=== PATIENT | male | born 1965 | race African-American/Black ===

== ENCOUNTER 2020-10-31 18:19 | Observation (INO) ==
[2020-10-31] MEDS ORDERED: NITROGLYCERIN 2% OINT 1 INCH/GM PACK TOP STA (18:49)
[2020-10-31] MEDS ORDERED: MORPHINE 4 MG/1 ML VIAL IV STA (18:49)
[2020-10-31] MEDS ORDERED: ONDANSETRON 4 MG/2 ML VIAL IV STA (18:49)
[2020-10-31] MEDS ORDERED: ASPIRIN 325 MG TABLET PO STA (18:49)
[2020-10-31] MEDS ORDERED: FUROSEMIDE 100 MG/10 ML VIAL IV STA (18:49)
[2020-10-31 19:00] LABS: Basophils % 0.5 % (0.0-0.8); Eosinophils # 0.1 10*3/uL (0.0-0.87); Eosinophils % 2.3 % (0.00-10.9); Hematocrit 39.5 VOL% (42.0-52.0); Hemoglobin 12.3 GM/DL (14.0-18.0); Immature Granulocytes % 0.5 %; Immature Granulocytes Absolute 0.03 #; Lymphocytes % 33.3 % (21.2-54.2); Mean Corpuscular HGB Conc 31.1 GM/DL (32-36); Mean Platelet Volume 10.6 FL (9.6-12.0); Neutrophils % 53.4 % (38.7-73.9); Platelet Count 235 T/CUMM (130-400); Red Blood Count 4.54 MC/CUMM (3.8-5.5); Red Cell Distribution Width 13.6 % (9.3-17.3)
[2020-10-31 19:23] LABS: PT Patient Result 10.9 SECS (10.5-12.0)
[2020-10-31 19:24] LABS: Alanine Aminotransferase 51 U/L (16-61); Albumin 3.6 G/DL (3.4-5.0); Alkaline Phosphatase 128 U/L (45-117); Aspartate Amino Transferase 28 U/L (0-37); Bilirubin,Total < 0.39 MG/DL (0.2-1.0); Blood Urea Nitrogen 10 MG/DL (7-18); Carbon Dioxide 30 MMOL/L (21-32); Estimated Glom Filtration Rate 141 ML/MIN; Glucose 241 MG/DL (74-106); Osmolality,Calculated 283.5 MOS/KG (273-304); Potassium 4.2 MMOL/L (3.5-5.1); Sodium 139 MMOL/L (136-145); Total Protein 7.6 G/DL (6.4-8.2)
[2020-10-31] MEDS ORDERED: ENOXAPARIN 120 MG/0.8 ML SYRINGE SUBCUT ONE (19:41)
[2020-10-31] MEDS ORDERED: ENOXAPARIN 120 MG/0.8 ML SYRINGE SUBCUT STA (19:41)
[2020-10-31] MEDS ORDERED: LOTION (KERI) 236 ML BOTTLE TOP PRN (20:44)
[2020-10-31] MEDS ORDERED: DEXTROSE 50% 25 GM/50 ML VIAL IV PRN (20:46)
[2020-10-31] MEDS ORDERED: ONDANSETRON 4 MG/2 ML VIAL IV PRN (20:46)
[2020-10-31] MEDS ORDERED: DOCUSATE SODIUM 100 MG CAPSULE PO PRN (20:46)
[2020-10-31] MEDS ORDERED: MORPHINE 4 MG/1 ML VIAL IV PRN (20:46)
[2020-10-31] MEDS ORDERED: hydrALAZINE 20 MG/1 ML VIAL IV PRN (20:46)
[2020-10-31] MEDS ORDERED: ACETAMINOPHEN 325 MG TABLET PO PRN (20:46)
[2020-10-31] MEDS ORDERED: GLUCAGON 1 MG VIAL IM PRN (20:46)
[2020-10-31] MEDS: carvediloL 12.5 MG TABLET PO SCH (22:08)
[2020-10-31] MEDS: INSULIN LISPRO 100 UNIT/ML SUBCUT SCH (22:51)
[2020-10-31] MEDS: INSULIN NPH 100 UNIT/ML SUBCUT SCH (22:51)
[2020-10-31] MEDS: FLUoxetine 20 MG CAPSULE PO SCH (23:43)
[2020-10-31] MEDS: ATORVASTATIN 80 MG TABLET PO SCH (23:43)
[2020-11-01 03:23] LABS: Basophils % 0.4 % (0.0-0.8); Eosinophils # 0.2 10*3/uL (0.0-0.87); Eosinophils % 2.4 % (0.00-10.9); Hematocrit 38.8 VOL% (42.0-52.0); Hemoglobin 12.2 GM/DL (14.0-18.0); Immature Granulocytes % 0.2 %; Immature Granulocytes Absolute 0.02 #; Lymphocytes # 2.2 10*3/uL (1.4-4.0); Lymphocytes % 26.4 % (21.2-54.2); Mean Corpuscular HGB Conc 31.4 GM/DL (32-36); Mean Platelet Volume 10.1 FL (9.6-12.0); Monocytes % 9.8 % (1.7-12.7); Neutrophils % 60.8 % (38.7-73.9); Platelet Count 228 T/CUMM (130-400); Red Blood Count 4.51 MC/CUMM (3.8-5.5); Red Cell Distribution Width 13.7 % (9.3-17.3); White Blood Count 8.4 T/CUMM (4-12)
[2020-11-01 04:22] LABS: Albumin 3.4 G/DL (3.4-5.0); Bilirubin,Total 0.4 MG/DL (0.2-1.0); Calcium 8.9 MG/DL (8.5-10.1); Osmolality,Calculated 274.2 MOS/KG (273-304); Potassium 3.8 MMOL/L (3.5-5.1); Risk Ratio 3.49; Thyroid Stimulating Hormone 1.02 uIU/ml (0.358-3.74); Total Protein 7.5 G/DL (6.4-8.2); VLDL CHOLESTEROL 28.2 MG/DL
[2020-11-01] MEDS: ENOXAPARIN 100 MG/ML SYRINGE SUBCUT SCH ×2 (08:50→21:36)
[2020-11-01] MEDS: ASPIRIN CHEW 81 MG TABLET PO SCH (08:50)
[2020-11-01] MEDS: FUROSEMIDE 40 MG/4 ML VIAL IV SCH ×2 (08:50→16:00)
[2020-11-01] MEDS: carvediloL 12.5 MG TABLET PO SCH ×2 (08:50→21:36)
[2020-11-01] MEDS: INSULIN LISPRO 100 UNIT/ML SUBCUT SCH ×4 (08:51→21:36)
[2020-11-01] MEDS: INSULIN NPH 100 UNIT/ML SUBCUT SCH ×2 (08:51→18:11)
[2020-11-01] MEDS: amLODIPine 10 MG TABLET PO SCH (08:51)
[2020-11-01] MEDS: ATORVASTATIN 80 MG TABLET PO SCH (21:36)
[2020-11-01] MEDS: FLUoxetine 20 MG CAPSULE PO SCH (21:37)
[2020-11-02 05:53] LABS: Basophils % 0.4 % (0.0-0.8); Eosinophils # 0.2 10*3/uL (0.0-0.87); Eosinophils % 3.2 % (0.00-10.9); Hematocrit 41.8 VOL% (42.0-52.0); Hemoglobin 13.2 GM/DL (14.0-18.0); Immature Granulocytes % 0.3 %; Immature Granulocytes Absolute 0.02 #; Lymphocytes # 2.4 10*3/uL (1.4-4.0); Lymphocytes % 34.4 % (21.2-54.2); Mean Corpuscular HGB Conc 31.6 GM/DL (32-36); Mean Corpuscular Volume 85.5 FL (87-102); Mean Platelet Volume 10.2 FL (9.6-12.0); Monocytes % 10.1 % (1.7-12.7); Neutrophils % 51.6 % (38.7-73.9); Platelet Count 254 T/CUMM (130-400); Red Blood Count 4.89 MC/CUMM (3.8-5.5); Red Cell Distribution Width 13.3 % (9.3-17.3); White Blood Count 7.1 T/CUMM (4-12)
[2020-11-02 06:13] LABS: Calcium 9.1 MG/DL (8.5-10.1); Osmolality,Calculated 277.5 MOS/KG (273-304); Potassium 3.2 MMOL/L (3.5-5.1)
[2020-11-02 06:42] LABS: Eosinophils 3 % (0-10); Hypochromasia 2+; Lymphocytes 36 % (20-55); Platelet Estimate Normal; Segmented Neutrophils 51 % (50-85); Total Cells Counted 100
[2020-11-02] MEDS: INSULIN LISPRO 100 UNIT/ML SUBCUT SCH ×3 (08:02→16:05)
[2020-11-02] MEDS: amLODIPine 10 MG TABLET PO SCH (08:55)
[2020-11-02] MEDS: carvediloL 12.5 MG TABLET PO SCH (08:55)
[2020-11-02] MEDS: FUROSEMIDE 40 MG/4 ML VIAL IV SCH ×2 (08:57→16:05)
[2020-11-02] MEDS: ASPIRIN CHEW 81 MG TABLET PO SCH (08:57)
[2020-11-02] MEDS: INSULIN NPH 100 UNIT/ML SUBCUT SCH (08:58)
[2020-11-02] MEDS: ENOXAPARIN 100 MG/ML SYRINGE SUBCUT SCH (08:59)
[2020-11-02] MEDS: POTASSIUM CHLORIDE 20 MEQ TABLET PO PRN ×4 (09:56→14:05)
[2020-11-02 11:49] VITALS: BP 124/74
== END 2020-11-02 16:00 ==
LOC: N.ED 18:19 → N.EDINP 18:19 → N.3W 22:05
PROVIDERS: ADMIT Family Medicine; ATTEND Family Medicine